=== PATIENT | male | born 1985 | race Caucasian/White ===

== ENCOUNTER 2019-12-31 08:08 | Emergency (ER) | payer MEDICAID, SELFPAY ==
--- NOTE | 2019-12-31 | XR_ITS ---
EXAMINATION: XR TIBIA AND FIBULA, LEFT CLINICAL INFORMATION: Pain and swelling. COMPARISON: None TECHNIQUE: AP and lateral views of the left tibia and fibula were obtained. FINDINGS: Bony alignment and mineralization are normal. No fracture or dislocation is seen. There is no abnormal periosteal thickening. The lateral and medial joint space compartments of the knee are well-maintained, and the ankle mortise is intact. There is mild soft tissue swelling adjacent to the lateral malleolus. IMPRESSION: 1. There is mild soft tissue swelling adjacent to the lateral malleolus. 2. The examination is otherwise unremarkable.
--- NOTE | 2019-12-31 | US_ITS ---
EXAMINATION: US VENOUS ULTRASOUND WITH DOPPLER LOWER EXTREMITY, LEFT CLINICAL INFORMATION: Pain left lower extremity. Assess for occult DVT COMPARISON: None TECHNIQUE: Ultrasound of the deep veins is performed from the hip to the calf with compression sonography and color and pulse Doppler assessment. Spectral analysis with color-flow imaging is performed. FINDINGS: There is normal venous compression and respiratory variation and augmented flow. The visualized common femoral vein, superficial femoral vein, profunda femoral vein, popliteal vein, and the trifurcation region shows no evidence of deep venous thrombosis. No popliteal fossa cyst demonstrated. IMPRESSION: No DVT demonstrated in the left lower extremity.
[2019-12-31 08:16] VITALS: PULSE 97; RESP 16; TEMP 36.7; O2SAT 100; BMI 24.5
--- NOTE | 2019-12-31 08:24 | ED_ITS ---
HPI - Extremity Problem General Chief complaint: Extremity Problem <Víctor Ramon NP - Last Filed: 12/31/19 16:44> Stated complaint: l leg pain <Víctor Ramon NP - Last Filed: 12/31/19 16:44> Time Seen by Provider: 12/31/19 08:20 <Víctor Ramon NP - Last Filed: 12/31/19 16:44> Source: patient <Víctor Ramon NP - Last Filed: 12/31/19 16:44> Mode of arrival: other ( Using crutches) <Víctor Ramon NP - Last Filed: 12/31/19 16:44> History of Present Illness HPI Narrative: states left lower leg swelling /pain for the past 1 week. States has had similar episode a year ago for which he came to the emergency room and got antibiotics got better. 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 Denies any fever or chills. Does have slight redness to the area with ecchymosis. <Víctor Ramon NP - Last Filed: 12/31/19 16:44> MD Complaint: extremity pain and extremity swelling <MICHAEL Hayden Last Filed: 12/31/19 16:44> Radiation: none <MICHAEL Hayden Last Filed: 12/31/19 16:44> Relieving factors: cold therapy, immobilization and elevation <MICHAEL Hayden Last Filed: 12/31/19 16:44> Exacerbating factors: weight bearing and walking <MICHAEL Hayden Last Filed: 12/31/19 16:44> Related Data Home medications: Previous Rx's Medication Instructions Recorded doxycycline monohydrate 100 mg PO BID 10 Days #20 cap 12/31/19 doxycycline monohydrate 100 mg PO BID 10 Days #20 cap 12/31/19 <MICHAEL Hayden Last Filed: 12/31/19 16:44> Allergies/Adverse reactions: Allergies Allergy/AdvReac Type Severity Reaction Status Date / Time Penicillins Allergy Intermediate RASH Unverified 12/16/19 15:48 penicillin V Allergy Unknown rash Verified 04/08/14 00:00 <Víctor Ramon NP - Last Filed: 12/31/19 16:44> Review of Systems Review of Systems: Constitutional: No Weight loss, No Fever, No Chills, No Night Sweats, No Fatigue, No Malaise ENT/Mouth: No Hearing loss, No Ear Pain, No Nasal Congestion, No Sinus Pain, No Hoarseness, No sore throat, No Rhinorrhea, No Swallowing Difficulty Eyes: No Eye Pain, No Swelling, No Redness, No Foreign Body, No Discharge, No Vision Changes Cardiovascular: No Chest Pain, No SOB, No Dyspnea on Exertion, No Orthopnea, No Edema, No Palpitations Respiratory: No Cough, No Sputum, No Wheezing, No Smoke Exposure, No Dyspnea Gastrointestinal: No Nausea, No Vomiting, No Diarrhea, No Constipation, No abdominal Pain, No Hematochezia, No Melena Genitourinary: no irregular bleeding, No Dysuria, No Urinary Frequency, No Hematuria, No Urinary Incontinence, No Urgency, No Flank Pain, No Urinary Flow Changes, No Hesitancy Musculoskeletal: No joint pain, No Myalgias, No Joint Swelling Skin: No Skin Lesions, No rash Neuro: No Weakness, No Numbness, No Paresthesias, No Loss of Consciousness, No Dizziness, No Headache Psych: No Anxiety/Panic, No Depression, No SI/HI/AH/VH, No Social Issues, Heme/Lymph: No Bruising, No Bleeding,No Lymphadenopathy Endocrine: No Polyuria, No Polydipsia, No Temperature Intolerance <Víctor Ramon NP - Last Filed: 12/31/19 16:44> [facility] Past Medical History Medical History: Medical History (Updated 12/31/19 @ 12:18 by Víctor Ramon NP) Anxiety Depression Hernia Migraine Opiate addiction <Víctor Ramon NP - Last Filed: 12/31/19 16:44> Social History Social History: Social History Smoking Status: Never smoker Smoked in Last 30 Days: No Substance Use Type: Marijuana Substance Use Type Other:: past opiate abuse Substance Use Frequency: Daily Advance Directives: No Advance Directives Information Provided: Yes <Víctor Ramon NP - Last Filed: 12/31/19 16:44> Physical Exam Vital Signs and I&O and Narrative: Vital Signs and I&O: Vital Signs Temp 97.6 F 12/31/19 11:47 Pulse 72 12/31/19 11:47 Resp 16 12/31/19 11:47 BP 121/77 10/02/20 11:47 Pulse Ox 99 12/31/19 11:47 Intake & Output 12/30/19 12/31/19 12/31/19 18:59 06:59 18:59 Weight 75.189 kg Body Mass Index 24.5 <Víctorshukri Ramon NP - Last Filed: 12/31/19 16:44> Vital Signs and I&O: Vital Signs Temp 97.6 F 12/31/19 11:47 Pulse 72 12/31/19 11:47 Resp 16 12/31/19 11:47 BP 121/77 12/31/19 11:47 Pulse Ox 99 12/31/19 11:47 Intake & Output 12/30/19 12/31/19 12/31/19 18:59 06:59 18:59 Weight 75.189 kg Body Mass Index 24.5 <Robert oCrmier DO - Last Filed: 12/31/19 17:38> Const: General: cooperative and healthy appearing; No acute distress or intoxicated appearing <Víctor Ramon NP - Last Filed: 12/31/19 16:44> Nutritional Appearance: average body habitus <Víctor Ramon NP - Last Filed: 12/31/19 16:44> Orientation/consciousness: patient oriented x3 <Víctor Ramon NP - Last Filed: 12/31/19 16:44> HENMT: Head: Yes normal to inspection <Víctorshukri Ramon NP - Last Filed: 12/31/19 16:44> Ears: hearing grossly normal bilaterally <Víctorshukri Ramon NP - Last Filed: 12/31/19 16:44> Neck: Neck: Yes normal visual inspection, No positive Brudzinski's sign, No positive Kernig's sign and No tender <Víctorshukri Ramon NP - Last Filed: 12/31/19 16:44> Thyroid: Thyroid normal <Víctor MICHAEL Ramon - Last Filed: 12/31/19 16:44> Chest: Chest palpation & inspection: normal inspection of the chest <Víctor Ramon NP - Last Filed: 12/31/19 16:44> Resp: Effort & Inspection: normal respiratory effort <Víctor Ramon NP - Last Filed: 12/31/19 16:44> Cardio: Jugular venous distension: no JVD <Víctor RamonMICHAEL guerrero - Last Filed: 12/31/19 16:44> GI: Inspection: Yes normal to inspection <Víctorshukri Ramon NP - Last Filed: 12/31/19 16:44> Percussion: Yes normal to percussion <Víctor RamirezMICHAEL guerrero - Last Filed: 12/31/19 16:44> Auscultation: normal bowel sounds <Víctorshukri Ramon NP - Last Filed: 12/31/19 16:44> : General: Yes no CVA tenderness <Víctor MICHAEL Ramon - Last Filed: 12/31/19 16:44> Back/Spine/Pelvis: Back: no CVA tenderness <Víctor MICHAEL Ramon - Last Filed: 12/31/19 16:44> Skin: General skin exam: no rashes or lesions noted <Víctorshukri Ramon NP - Last Filed: 12/31/19 16:44> Neuro: General: patient oriented x3 <Víctor Ramon NP - Last Filed: 12/31/19 16:44> Extrem: General: Yes normal to inspection <Víctor RamonMICHAEL guerrero - Last Filed: 12/31/19 16:44> Course Course Hospital Course: x-ray no acute bony abnormality. Ultrasound negative for lower extremity DVT. No signs symptoms/ risk factors for DVT / pulmonary embolism. Exam consistent with new of leg swelling with ecchymosis and slight erythema consistent with early cellulitis. Will start on oral antibiotics yearly has crutches has this happen to him once before will follow up with his GP and referral to vascular. Agreeable plan. Stable for discharge. <Víctor Ramon NP - Last Filed: 12/31/19 16:44> MDM - Extremity (Nontraumatic) MDM Narrative Medical decision making narrative: Strain/strain/contusion / fracture/cellulitis / DVT. <Víctor Ramon NP - Last Filed: 12/31/19 16:44> Lab Data Result diagrams: : 12/31/19 08:48 12/31/19 08:48 <Víctor Ramon NP - Last Filed: 12/31/19 16:44> Labs: Lab Results 12/31/19 12/31/19 Range/Units 08:48 08:48 WBC 5.6 (4.8-10.8) X10*3/uL RBC 4.09 L (4.60-5.80) X10*6/uL Hgb 12.0 L (14.0-18.0) g/dl Hct 36.5 L (42-52) % MCV 89.2 (80-98) fL MCH 29.3 (27.0-33.0) pg MCHC 32.9 (31.0-36.0) g/dl RDW 12.0 (11.0-16.0) % Plt Count 254 (160-400) X10*3/uL MPV 9.4 (9.4-12.4) fL Immature Gran % (Auto) 0.4 (0.0-0.4) % Neut % (Auto) 69.3 (45-73) % Lymph % (Auto) 20.6 (20-40) % [place] % (Auto) 8.4 (2-11) % Eos % (Auto) 0.9 (0-4) % Baso % (Auto) 0.4 (0-2) % Neut # (Auto) 3.9 (2.0-8.3) X10*3/uL Lymph # (Auto) 1.2 (1.2-4.9) X10*3/uL [place] # (Auto) 0.5 (0.1-1.2) X10*3/uL Eos # (Auto) 0.1 (0.0-0.4) X10*3/uL Baso # (Auto) 0.0 (0.0-0.2) X10*3/uL Abs Immat Gran (auto) 0.02 (0.00-0.03) X10*3/uL Absolute Nucleated RBC 0.000 (0.0-0.012) X10*3/uL Nucleated RBC % (auto) 0.0 (0.0-0.2) /100WBC Sodium 139 (135-145) mmol/L Potassium 3.9 (3.3-5.1) mmol/l Chloride 103 (96-108) mmol/L Carbon Dioxide 30 H (22-29) mmol/L Anion Gap 10 L (12-20) BUN 17 H (9-16) mg/dL Creatinine 0.76 (0.5-1.4) mg/dL Estim Creat Clear Calc 139.5 Estimated GFR > 60 Random Glucose 83 (60-115) mg/dL Calcium 9.1 (8.4-10.2) mg/dL Total Bilirubin 0.5 (0.0-1.0) mg/dL Direct Bilirubin 0.2 (0.0-0.5) mg/dL AST 31 (5-37) U/L ALT 46 H (0-40) U/L Alkaline Phosphatase 96 (39-117) U/L Total Protein 7.0 (6.5-8.0) g/dL Albumin 4.6 (3.5-5.0) g/dL <Víctor Ramon NP - Last Filed: 12/31/19 16:44> Lab Results 12/31/19 12/31/19 Range/Units 08:48 08:48 WBC 5.6 (4.8-10.8) X10*3/uL RBC 4.09 L (4.60-5.80) X10*6/uL Hgb 12.0 L (14.0-18.0) g/dl Hct 36.5 L (42-52) % MCV 89.2 (80-98) fL MCH 29.3 (27.0-33.0) pg MCHC 32.9 (31.0-36.0) g/dl RDW 12.0 (11.0-16.0) % Plt Count 254 (160-400) X10*3/uL MPV 9.4 (9.4-12.4) fL Immature Gran % (Auto) 0.4 (0.0-0.4) % Neut % (Auto) 69.3 (45-73) % Lymph % (Auto) 20.6 (20-40) % [place] % (Auto) 8.4 (2-11) % Eos % (Auto) 0.9 (0-4) % Baso % (Auto) 0.4 (0-2) % Neut # (Auto) 3.9 (2.0-8.3) X10*3/uL Lymph # (Auto) 1.2 (1.2-4.9) X10*3/uL [place] # (Auto) 0.5 (0.1-1.2) X10*3/uL Eos # (Auto) 0.1 (0.0-0.4) X10*3/uL Baso # (Auto) 0.0 (0.0-0.2) X10*3/uL Abs Immat Gran (auto) 0.02 (0.00-0.03) X10*3/uL Absolute Nucleated RBC 0.000 (0.0-0.012) X10*3/uL Nucleated RBC % (auto) 0.0 (0.0-0.2) /100WBC Sodium 139 (135-145) mmol/L Potassium 3.9 (3.3-5.1) mmol/l Chloride 103 (96-108) mmol/L Carbon Dioxide 30 H (22-29) mmol/L Anion Gap 10 L (12-20) BUN 17 H (9-16) mg/dL Creatinine 0.76 (0.5-1.4) mg/dL Estim Creat Clear Calc 139.5 Estimated GFR > 60 Random Glucose 83 (60-115) mg/dL Calcium 9.1 (8.4-10.2) mg/dL Total Bilirubin 0.5 (0.0-1.0) mg/dL Direct Bilirubin 0.2 (0.0-0.5) mg/dL AST 31 (5-37) U/L ALT 46 H (0-40) U/L Alkaline Phosphatase 96 (39-117) U/L Total Protein 7.0 (6.5-8.0) g/dL Albumin 4.6 (3.5-5.0) g/dL <Robert Cormier DO - Last Filed: 12/31/19 17:38> Imaging Data Venous US: Radiologist's impression: [address] [address] Ultrasound Report Signed Patient: Juan Manuel Knight#: [id number] : 1985Acct:[id number] Age/Sex: 34 / MADM Date: 12/31/19 Loc: HO.ED Attending Dr: Ordering Physician: Víctor Ramon NP Date of Service: 12/31/19 Procedure(s): US venous duplex LE Accession Number(s): [id number] cc: ~ EXAMINATION: US VENOUS ULTRASOUND WITH DOPPLER LOWER EXTREMITY, LEFT CLINICAL INFORMATION: Pain left lower extremity. Assess for occult DVT COMPARISON: None TECHNIQUE: Ultrasound of the deep veins is performed from the hip to the calf with compression sonography and color and pulse Doppler assessment. Spectral analysis with color-flow imaging is performed. FINDINGS: There is normal venous compression and respiratory variation and augmented flow. The visualized common femoral vein, superficial femoral vein, profunda femoral vein, popliteal vein, and the trifurcation region shows no evidence of deep venous thrombosis. No popliteal fossa cyst demonstrated. IMPRESSION: No DVT demonstrated in the left lower extremity. Dictated By:ASUNCION DURAN MD Signed By:<Electronically signed by ASUNCION DURAN MD in OV>12/31/19941 DD/ 1 TD/TT: Mortgage Loan Assistant: DARIUS <íVctor Ramon NP - Last Filed: 12/31/19 16:44> Discharge Plan Discharge Clinical Impression: Lower extremity edema Cellulitis Qualifiers: Site of cellulitis: extremity Site of cellulitis of extremity: lower extremity Laterality: left Qualified Code(s): L03.116 - Cellulitis of left lower limb <Víctor Ramon NP - Last Filed: 12/31/19 16:44> Patient Disposition: Home, Self-Care <MICHAEL Hayden Last Filed: 12/31/19 16:44> Instructions: Cellulitis (ED) <Víctor Ramon NP - Last Filed: 12/31/19 16:44> Additional Instructions: rest Elevate Compresses Use her crutches as discussed Your x-ray does not show any evidence of bone fracture The ultrasound of your left lower extremity does not show any evidence of blood clot You have slight swelling around the lower calf area this can be as result of injury that is causing the bruising There is some redness concerning for infection for this reason you be started on antibiotics I will give her work note for next 3 days Have a recheck with her primary care doctor either Friday or Friday Return if any concerns or worsening symptoms Thank you <Víctor Ramon NP - Last Filed: 12/31/19 16:44> Prescriptions: New doxycycline monohydrate 100 mg capsule 100 mg PO BID 10 Days Qty: 20 RF: 0 doxycycline monohydrate 100 mg capsule 100 mg PO BID 10 Days Qty: 20 RF: 0 <Víctor Ramon NP - Last Filed: 12/31/19 16:44> Interventions: ED Discharge Assessment Last Done: 12/31/19 13:10 <Víctor Ramon NP - Last Filed: 12/31/19 16:44> Discharge Date/Time: 12/31/19 12:50 <Víctor Ramon NP - Last Filed: 12/31/19 16:44>
[2019-12-31 08:52] LABS: Basophils Percent Auto 0.4 % (0-2); Eosinophils Absolute Auto 0.1 X10*3/uL (0.0-0.4); Eosinophils Percent Auto 0.9 % (0-4); Hematocrit 36.5 % (42-52); Imm Gran Abs Auto 0.02 X10*3/uL (0.00-0.03); Imm Gran Pct Auto 0.4 % (0.0-0.4); Lymphocytes Absolute Auto 1.2 X10*3/uL (1.2-4.9); Lymphocytes Percent Auto 20.6 % (20-40); MANUAL DIFF FLAG NO; Mean Corpuscular HGB Conc 32.9 g/dl (31.0-36.0); Mean Corpuscular Hemoglobin 29.3 pg (27.0-33.0); Mean Corpuscular Volume 89.2 fL (80-98); Mean Platelet Volume 9.4 fL (9.4-12.4); Monocytes Absolute Auto 0.5 X10*3/uL (0.1-1.2); Monocytes Percent Auto 8.4 % (2-11); Neutrophils Absolute Auto 3.9 X10*3/uL (2.0-8.3); Neutrophils Percent Auto 69.3 % (45-73); Platelet Count 254 X10*3/uL (160-400); Red Blood Count 4.09 X10*6/uL (4.60-5.80); White Blood Count 5.6 X10*3/uL (4.8-10.8)
--- NOTE | 2019-12-31 09:13 | PC.NURSE ---
PT ALERT AND VERBAL. SKIN WPD. RESPIRATIONS EVEN AND NON LABORED. MODERATE SWELLING, REDNESS TO LEFT ANKLE AND LOWER SIDE OF LEG. AREA HOT AND TENDER TO TOUCH. STATES PAIN INCREASES WITH AMBULATION, DECREASES WITH REST AND WHEN RAISED. AWAITING RESULTS OF US, CT, BLOOD WORK.
[2019-12-31 09:19] LABS: Alanine Aminotransferase 46 U/L (0-40); Albumin Level 4.6 g/dL (3.5-5.0); Alkaline Phosphatase 96 U/L (39-117); Anion Gap 10 (12-20); Aspartate Amino Transferase 31 U/L (5-37); Bilirubin Direct 0.2 mg/dL (0.0-0.5); Bilirubin Total 0.5 mg/dL (0.0-1.0); Blood Urea Nitrogen 17 mg/dL (9-16); Calcium 9.1 mg/dL (8.4-10.2); Carbon Dioxide 30 mmol/L (22-29); Chloride 103 mmol/L (96-108); Creatinine Clr Calc Pharmacy 139.5; Estimated Glomerular Filt Rate > 60; Glucose Random 83 mg/dL (60-115); Potassium 3.9 mmol/l (3.3-5.1); Sodium 139 mmol/L (135-145)
[2019-12-31 11:47] VITALS: BP 121/77; PULSE 72; RESP 16; TEMP 36.4; O2SAT 99
== END 2019-12-31 12:50 | disposition home or self-care (01) ==
PROVIDERS: Nurse Practitioner Primary Care; Emergency Provider Emergency Medicine; PCP Internal Medicine
DX: L03.116 Cellulitis of left lower limb (principal); M79.662 Pain in left lower leg; F11.20 Opioid dependence, uncomplicated
CPT/HCPCS: 36415; 73590; 80048; 80076; 85025; 93971; 99284

== ENCOUNTER 2020-09-30 23:26 | Emergency (ER) | payer MEDICAID, SELFPAY ==
[2020-10-01] VITALS: BP 126/74; PULSE 77; RESP 18; O2SAT 97; BMI 25.1
--- NOTE | 2020-10-01 00:35 | ED.DENTAL ---
HPI - Dental/Oral General Chief complaint: Ear Problems Stated complaint: toothache Source: patient Mode of arrival: ambulatory Limitations: no limitations History of Present Illness HPI Narrative: 35-year-old male presents with several weeks of right lower dental pain which has now progressed to right-sided ear pain. Patient has not seen a dentist and has known dental caries. He did not report fevers, chills, difficulty opening his jaw or swallowing, neck pain, chest pain or pressure, palpitations, shortness of breath, abdominal pain, abdominal distention, nausea, vomiting, diarrhea, constipation, dysuria, hematuria, or any other concerning symptoms. MD Complaint: tooth pain Teeth map: 1. Onset (ago): week(s) Duration: constant Severity: moderate Severity scale (1-10): 7 Relieving factors: nothing Exacerbating factors: chewing, cold, heat and drinking fluids Context: history of dental caries and poor dental care Associated symptoms: ear pain Treatment prior to arrival: oral analgesic Related Data Previous Rx's Medication Instructions Recorded doxycycline monohydrate 100 mg PO BID 10 Days #20 cap 12/31/19 doxycycline monohydrate 100 mg PO BID 10 Days #20 cap 12/31/19 clindamycin HCl 150 mg PO TID 7 Days #21 cap 10/01/20 clindamycin HCl 300 mg PO Q8H 7 Days #21 cap 10/01/20 ketorolac 10 mg PO Q6H PRN 5 Days #15 tab 10/01/20 Allergies Allergy/AdvReac Type Severity Reaction Status Date / Time Penicillins Allergy Intermediate RASH Verified 09/30/20 23:59 penicillin V Allergy Unknown rash Verified 09/30/20 23:59 Review of Systems Review of Systems: Constitutional: No Fever, No Chills ENT/Mouth: No swallowing difficulty, no change in voice, positive dental pain, positive jaw pain, No facial swelling Eyes: No Eye Pain, No Swelling Cardiovascular: No Chest Pain, No SOB Respiratory: No Cough, No Sputum, No Wheezing, No Smoke Exposure, No Dyspnea Gastrointestinal: No Nausea, No Vomiting, No Diarrhea Genitourinary: No Dysuria Musculoskeletal: No Myalgias Skin: No rash Neuro: No Weakness, No Numbness, No Headache Yes all other systems are reviewed and are negative PMFSH Past Medical History Attestation statement: The following information was validated with the patient. Source: old records reviewed Medical History Anxiety Depression Hernia Migraine Opiate addiction Social History Social History Substance Use Type: Marijuana Advance Directives: No Advance Directives Information Provided: No Physical Exam Vital Signs: Vital Signs: Last Vital Signs Pulse 77 10/01/20 00:00 Resp 18 10/01/20 00:00 BP 126/74 10/01/20 00:00 Pulse Ox 97 10/01/20 00:00 Body Mass Index 25.1 Appearance: Alert. Oriented X3. No acute distress. Eyes: Pupils equal, round and reactive to light. ENT: Pharynx normal. right tympanic membrane erythematous and bulging with effusion, no perforation. Left tympanic membrane normal. No mastoid tenderness noted. Visible dental caries to tooth 29 Neck: Normal inspection. Neck supple. no cervical lymphadenopathy, no tracheal stridor no trismus CVS: Normal heart rate and rhythm. Pulses normal. Respiratory: No respiratory distress. Breath sounds normal. Abdomen: Soft and nontender. Skin: Skin warm and dry. Normal skin color. Normal skin turgor. Extremities: No lower extremity edema. gait well balanced well coordinated, moves all extremities spontaneously Neuro: No motor deficit. No sensory deficit. Course Course Course Narrative: 35-year-old male presents with dental caries, tooth ache and right ear pain. He has had this ongoing for several weeks and has not seen a dentist. Will treat with clindamycin as patient is anaphylactic allergic to penicillin. Patient given dental sheet, dose of Toradol for pain management and will be given a script for Toradol. Patient verbalized understanding of and agrees to plan of care discharge home. MDM - Dental/Oral MDM Narrative Medical decision making narrative: Otitis media, mastoiditis Differential Diagnosis Differential diagnosis: Likely gingival abscess, dental caries, toothache, dental abscess and fracture of tooth Medical Records Attestation: I reviewed the patient's medical records. Discharge Plan Discharge Clinical Impression: Dental abscess Otitis media Qualifiers: Otitis media type: suppurative Chronicity: acute Laterality: right Recurrence: non-recurrent Spontaneous tympanic membrane rupture: without spontaneous rupture Qualified Code(s): H66.001 - Acute suppurative otitis media without spontaneous rupture of ear drum, right ear Patient Disposition: Home, Self-Care Instructions: Dental Abscess (ED), Ear Infection (ED), Toothache (ED) Additional Instructions: you were evaluated for dental and ear pain. Please take clindamycin 450 mg 3 times a day for the next 10 days. You must follow-up with a dentist. Please use Toradol as needed for pain management. Your 1st dose was given to you IM in the emergency department. Thank you for choosing this emergency department for evaluation. Please follow-up with primary care physician as needed. Return to the emergency department for any new, concerning, or worsening symptoms. Prescriptions: New clindamycin HCl 300 mg capsule 300 mg PO Q8H 7 Days Qty: 21 RF: 0 clindamycin HCl 150 mg capsule 150 mg PO TID 7 Days Qty: 21 RF: 0 ketorolac 10 mg tablet 10 mg PO Q6H PRN (Reason: pain) 5 Days Qty: 15 RF: 0 No Action doxycycline monohydrate 100 mg capsule 100 mg PO BID 10 Days Qty: 20 RF: 0 doxycycline monohydrate 100 mg capsule 100 mg PO BID 10 Days Qty: 20 RF: 0
[2020-10-01] MEDS: Ketorolac Tromethamine 60 MG/2 ML VIAL IM (00:54)
--- NOTE | 2020-10-01 00:57 | PC.NURSE ---
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
[2020-10-01] MEDS: Clindamycin HCL 150 MG CAPSULE 450 MG PO (01:17)
== END 2020-10-01 01:53 | disposition home or self-care (01) ==
PROVIDERS: Emergency Provider Internal Medicine; PCP Internal Medicine
DX: K04.7 Periapical abscess without sinus (principal); H66.001 Acute suppurative otitis media without spontaneous rupture of ear drum, right ear; Z88.0 Allergy status to penicillin
CPT/HCPCS: 96372; 99284; J1885

== ENCOUNTER 2021-07-04 23:14 | Emergency (ER) | payer MEDICAID, SELFPAY ==
[2021-07-04 23:20] VITALS: BP 128/82; PULSE 84; RESP 16; TEMP 36.9; O2SAT 98; BMI 25.1
--- NOTE | 2021-07-05 00:31 | ED_ITS ---
HPI - General Adult General Chief complaint: Dental/Oral Stated complaint: tooth infection & swollen R eye Time Seen by Provider: 07/05/21 00:24 Source: patient Mode of arrival: ambulatory Limitations: no limitations History of Present Illness HPI narrative: 36-year-old male presents to ED right eye redness, green discharge, and slight upper eyelid swelling. Patient denies any recent trauma to the eye or sleeping or using contacts. Patient's secondary complaint is right lower molar pain also. Patient states no facial swelling, neck swelling, drooling, or shortness of breath Related Data Previous Rx's Medication Instructions Recorded doxycycline monohydrate 100 mg 100 mg PO BID 10 Days #20 cap 12/31/19 capsule doxycycline monohydrate 100 mg 100 mg PO BID 10 Days #20 cap 12/31/19 capsule clindamycin HCl 150 mg capsule 150 mg PO TID 7 Days #21 cap 10/01/20 clindamycin HCl 300 mg capsule 300 mg PO Q8H 7 Days #21 cap 10/01/20 ketorolac 10 mg tablet 10 mg PO Q6H PRN 5 Days #15 tab 10/01/20 clindamycin HCl 300 mg capsule 300 mg PO QID 10 Days #40 cap 07/05/21 erythromycin 5 mg/gram (0.5 %) eye 0.5 inch OPHTHALMIC (EYE) QID 7 07/05/21 ointment Days #3.5 g naproxen 500 mg tablet 500 mg PO BID PRN 10 Days #20 tab 07/05/21 Allergies Allergy/AdvReac Type Severity Reaction Status Date / Time Penicillins Allergy Intermediate RASH Verified 09/30/20 23:59 penicillin V Allergy Unknown rash Verified 09/30/20 23:59 Review of Systems Review of Systems: Dental pain and right eye doing discharge and redness. Yes all other systems are reviewed and are negative PMFSH Past Medical History Medical History Anxiety Depression Hernia Migraine Opiate addiction Social History Social History Substance Use Type: Marijuana Advance Directives: No Advance Directives Information Provided: No Physical Exam ED Vital Signs: Vital Signs - 24 hr 07/04/21 23:20 Temperature 98.5 F Pulse Rate 84 Respiratory Rate 16 Blood Pressure 128/82 Pulse Oximetry 98 BMI result Body Mass Index 25.1 Const General: cooperative, healthy appearing, comfortable, no acute distress, well developed and alert Orientation/consciousness: oriented to time and patient oriented x3 HENMT Other: Negative for facial swelling or neck swelling Head: Yes normal to inspection, Yes No palpable skull fracture present, Yes normocephalic and Yes atraumatic Teeth image: 1. Cracked and decay. Negative for pus discharge or drooling. Negative for trismus. Eyes Other: Right eye positive conjunctival erythema and green discharge. Slight swelling of right upper eyelid and erythema. Negative for any stye or chalazoin. Visual acuity 20/20. Left eye normal. Visual acuity 20/20 Neck Neck: Yes normal visual inspection, Yes full ROM, Yes no lymphadenopathy, Yes no meningeal signs, Yes trachea midline, Yes supple, No anterior neck swelling and No tender Chest Chest palpation & inspection: normal inspection of the chest and normal palpation of entire chest wall Resp Effort & Inspection: normal respiratory effort and able to speak in complete sentences Auscultation: clear to auscultation bilaterally Cardio Jugular venous distension: no JVD Heart sounds: S1 normal heart sound present and S2 normal heart sound present GI Inspection: Yes normal to inspection and No abdominal wall ecchymosis Palpation (GI): Soft to palpation, not firm, nontender, no guarding and not rigid General: No CVA tenderness and Yes no CVA tenderness Back/Spine/Pelvis Back: no CVA tenderness, No CVA tenderness and No back tenderness Skin General skin exam: no rashes or lesions noted and elasticity normal Neuro General: oriented to time, patient oriented x3, gait normal and no meningeal signs Cranial nerves: Yes CN's II-XII intact bilaterally Extrem General: Yes normal to inspection and Yes full ROM Psych Appearance: grossly normal, well kempt and not disheveled Course Course Course Narrative: Eye evaluation Reevaluation(s) Reevaluation #1: History physical exam indicate conjunctivitis. Patient given oral antibiotics and pain med for right molar pain. Time: 01:03 Medical Decision Making [facility] Narrative Medical decision making narrative: Conjunctivitis. Toothache Discharge Plan Discharge Clinical Impression: Toothache, Acute bacterial conjunctivitis Patient Disposition: Home, Self-Care Instructions: Toothache (ED), Conjunctivitis (ED) Additional Instructions: Will be discharged with eye ointment and oral antibiotic. Will need to follow- up with dentist and primary care provider. Return to ED for worsening eye pain, eye swelling, redness, worsening eye discharge, facial swelling, neck swelling, worsening tooth pain, drooling, or any other concerning symptoms. Prescriptions: New clindamycin HCl 300 mg capsule 300 mg PO QID 10 Days Qty: 40 0RF erythromycin 5 mg/gram (0.5 %) ointment 0.5 inch ophthalmic (eye) QID 7 Days Qty: 3.5 0RF naproxen 500 mg tablet 500 mg PO BID PRN (Reason: pain) 10 Days Qty: 20 0RF No Action doxycycline monohydrate 100 mg capsule 100 mg PO BID 10 Days Qty: 20 0RF doxycycline monohydrate 100 mg capsule 100 mg PO BID 10 Days Qty: 20 0RF clindamycin HCl 300 mg capsule 300 mg PO Q8H 7 Days Qty: 21 0RF Rx Instructions: take 450 mg 3 times a day for 7 days clindamycin HCl 150 mg capsule 150 mg PO TID 7 Days Qty: 21 0RF Rx Instructions: take 450 mg every 8 hours for 7 days ketorolac 10 mg tablet 10 mg PO Q6H PRN (Reason: pain) 5 Days Qty: 15 0RF Rx Instructions: 60 mg IM dose given in the emergency department on 10/01/2020 at 12:39 a.m. Referrals: Alvaro Corley [Physician] - (Right eye conjunctivitis) Stand Alone Forms: Work/School Release Print Language: Nepali
[2021-07-05] MEDS: Erythromycin Base 0.5% Oph Oin 1 GM TUBE 1 CM EYE-RIGHT (01:07)
== END 2021-07-05 00:58 | disposition home or self-care (01) ==
PROVIDERS: Emergency Provider Internal Medicine; PCP Internal Medicine
DX: K08.89 Other specified disorders of teeth and supporting structures (principal); H10.31 Unspecified acute conjunctivitis, right eye
CPT/HCPCS: 99283

== ENCOUNTER 2022-02-05 00:50 | Emergency (ER) | payer MEDICAID, SELFPAY ==
[2022-02-05 01:32] VITALS: BP 124/79; PULSE 74; RESP 16; TEMP 37; O2SAT 96; BMI 28.2
[2022-02-05 01:57] LABS: Strep A Nucleic Acid Negative (Negative)
[2022-02-05 02:26] LABS: Influenza A PCR NEGATIVE (Negative); Influenza B PCR NEGATIVE (Negative); Resp Syncy Virus RNA Qual PCR NEGATIVE (Negative); SARS COV2 PCR INHOUSE NEGATIVE (Negative)
--- NOTE | 2022-02-05 02:33 | ED.DENTAL ---
HPI - Dental/Oral General Chief complaint: Dental/Oral Stated complaint: infected tooth/jaw pain Time Seen by Provider: 02/05/22 02:32 Source: patient Mode of arrival: ambulatory Limitations: no limitations History of Present Illness HPI Narrative: Patient with chronic dental problems been here multiple times has not seen a dentist comes of a few days of pain in left lower premolar no fever no chills sensitive to cold water Related Data Previous Rx's Medication Instructions Recorded doxycycline monohydrate 100 mg 100 mg PO BID 10 days #20 caps 12/31/19 capsule doxycycline monohydrate 100 mg 100 mg PO BID leg cellulitis 10 12/31/19 capsule days #20 caps clindamycin HCl 150 mg capsule 150 mg PO TID 7 days #21 caps 10/01/20 clindamycin HCl 300 mg capsule 300 mg PO Q8H 7 days #21 caps 10/01/20 ketorolac 10 mg tablet 10 mg PO Q6H PRN pain 5 days #15 10/01/20 tabs clindamycin HCl 300 mg capsule 300 mg PO QID 10 days #40 caps 07/05/21 erythromycin 5 mg/gram (0.5 %) eye 0.5 inch ophthalmic (eye) QID 7 07/05/21 ointment days #3.5 grams naproxen 500 mg tablet 500 mg PO BID PRN pain 10 days #20 07/05/21 tabs clindamycin HCl 300 mg capsule 300 mg PO Q8H #30 caps 02/05/22 tramadol 50 mg tablet 50 mg PO Q6H PRN pain #20 tabs 02/05/22 Allergies Allergy/AdvReac Type Severity Reaction Status Date / Time Penicillins Allergy Intermediate RASH Verified 09/30/20 23:59 penicillin V Allergy Unknown rash Verified 09/30/20 23:59 Review of Systems Review of Systems: Yes all other systems are reviewed and are negative PMFSH Past Medical History Medical History Anxiety Depression Hernia Migraine Opiate addiction Social History Social History Substance Use Type: Marijuana Advance Directives: No Physical Exam Vital Signs: Vital Signs: Last Vital Signs Temp 98.6 F 02/05/22 01:32 Pulse 74 02/05/22 01:32 Resp 16 02/05/22 01:32 BP 124/79 02/05/22 01:32 Pulse Ox 96 02/05/22 01:32 O2 Del Method 02/05/22 01:32 BMI result Body Mass Index 28.2 Const: General: healthy appearing, comfortable and no acute distress HEENT: Teeth image: 1. Diffuse tenderness in the gum area and the left lower premolar no abscess palpable MDM - Dental/Oral Lab Data Labs: Lab Results 02/05/22 02/05/22 Range/Units 01:40 01:40 Influenza Type A (PCR) NEGATIVE (Negative) Influenza Type B (PCR) NEGATIVE (Negative) RSV RNA Qual (PCR) NEGATIVE (Negative) SARS-CoV-2 RNA (RT-PCR) NEGATIVE (Negative) S. pyogenes GrpA HAYLEE Negative (Negative) Discharge Plan Discharge Clinical Impression: Dental caries Patient Disposition: Home, Self-Care Instructions: Toothache (ED) Additional Instructions: Take antibiotics as advised Follow with dentist Prescriptions: New clindamycin HCl 300 mg capsule 300 mg PO Q8H Qty: 30 0RF tramadol 50 mg tablet 50 mg PO Q6H PRN (Reason: pain) Qty: 20 0RF No Action doxycycline monohydrate 100 mg capsule 100 mg PO BID 10 Days Qty: 20 0RF doxycycline monohydrate 100 mg capsule 100 mg PO BID 10 Days Qty: 20 0RF clindamycin HCl 300 mg capsule 300 mg PO Q8H 7 Days Qty: 21 0RF Rx Instructions: take 450 mg 3 times a day for 7 days clindamycin HCl 150 mg capsule 150 mg PO TID 7 Days Qty: 21 0RF Rx Instructions: take 450 mg every 8 hours for 7 days ketorolac 10 mg tablet 10 mg PO Q6H PRN (Reason: pain) 5 Days Qty: 15 0RF Rx Instructions: 60 mg IM dose given in the emergency department on 10/01/2020 at 12:39 a.m. clindamycin HCl 300 mg capsule 300 mg PO QID 10 Days Qty: 40 0RF erythromycin 5 mg/gram (0.5 %) ointment 0.5 inch ophthalmic (eye) QID 7 Days Qty: 3.5 0RF naproxen 500 mg tablet 500 mg PO BID PRN (Reason: pain) 10 Days Qty: 20 0RF
[2022-02-05] MEDS: Clindamycin HCL 300 MG CAPSULE PO (03:13)
[2022-02-05] MEDS: traMADoL HCL 50 MG TABLET PO (03:14)
== END 2022-02-05 03:17 | disposition home or self-care (01) ==
PROVIDERS: Emergency Provider Internal Medicine
DX: K02.9 Dental caries, unspecified (principal); K08.89 Other specified disorders of teeth and supporting structures; Z20.822 Contact with and (suspected) exposure to COVID-19; F12.90 Cannabis use, unspecified, uncomplicated; F11.20 Opioid dependence, uncomplicated
CPT/HCPCS: 0241U; 36415; 87651; 99283

== ENCOUNTER 2022-06-13 12:31 | Outpatient (REF) | payer MEDICAID, SELFPAY ==
[2022-06-13 14:03] LABS: MANUAL DIFF FLAG NO
[2022-06-13 14:34] LABS: Basophils Percent Auto 0.6 % (0-2); Eosinophils Absolute Auto 0.1 X10*3/uL (0.0-0.4); Eosinophils Percent Auto 2.6 % (0-4); Hematocrit 43.1 % (42.0-52.0); Imm Gran Abs Auto 0.02 X10*3/uL (0.00-0.03); Imm Gran Pct Auto 0.4 % (0.0-0.4); Lymphocytes Absolute Auto 1.3 X10*3/uL (1.2-4.9); Lymphocytes Percent Auto 25.6 % (20-40); Mean Corpuscular HGB Conc 32.5 g/dl (31.0-36.0); Mean Corpuscular Hemoglobin 28.2 pg (27.0-33.0); Mean Corpuscular Volume 86.9 fL (80.0-98.0); Monocytes Absolute Auto 0.3 X10*3/uL (0.1-1.2); Monocytes Percent Auto 6.1 % (2-11); Neutrophils Absolute Auto 3.2 x10*3/uL (2.0-8.3); Neutrophils Percent Auto 64.7 % (45-73); Platelet Count 306 X10*3/uL (160-400); Red Blood Count 4.96 X10*6/uL (4.60-5.80); Red Cell Distribution Width 11.5 % (11.0-16.0); White Blood Count 4.9 X10*3/uL (4.8-10.8)
[2022-06-13 14:58] LABS: Alanine Aminotransferase 78 U/L (0-40); Albumin Level 4.8 g/dL (3.5-5.0); Alkaline Phosphatase 74 U/L (39-117); Anion Gap 10 (12-20); Aspartate Amino Transferase 43 U/L (5-37); Bilirubin Total 0.4 mg/dL (0.0-1.0); Blood Urea Nitrogen 19 mg/dL (9-16); Carbon Dioxide 33 mmol/L (22-29); Chloride 101 mmol/L (96-108); Estimated Glomerular Filt Rate > 60; Glucose Random 90 mg/dL (60-115); Potassium 4.4 mmol/L (3.3-5.1); Sodium 140 mmol/L (135-145); Total Protein 7.4 g/dL (6.5-8.0)
[2022-06-13 15:15] LABS: Thyroid Stimulating Hormone 1.27 uIU/mL (0.32-4.0)
== END 2022-06-13 12:32 | disposition home or self-care (01) ==
LOC: HO.10HDL 12:31
PROVIDERS: Visit Provider Internal Medicine
DX: F12.288 Cannabis dependence with other cannabis-induced disorder (principal); F32.9 Major depressive disorder, single episode, unspecified; R45.4 Irritability and anger; R61 Generalized hyperhidrosis; R63.4 Abnormal weight loss
CPT/HCPCS: 36415; 80053; 84443; 85025

== ENCOUNTER 2023-01-09 10:40 | Outpatient (REF) | payer MEDICAID, SELFPAY ==
[2023-01-09 13:14] LABS: MANUAL DIFF FLAG NO
[2023-01-09 13:21] LABS: Basophils Percent Auto 0.5 % (0-2); Eosinophils Absolute Auto 0.2 X10*3/uL (0.0-0.4); Eosinophils Percent Auto 2.8 % (0-4); Hematocrit 42.6 % (42.0-52.0); Imm Gran Abs Auto 0.03 X10*3/uL (0.00-0.03); Imm Gran Pct Auto 0.5 % (0.0-0.4); Lymphocytes Absolute Auto 1.4 X10*3/uL (1.2-4.9); Mean Corpuscular HGB Conc 32.9 g/dl (31.0-36.0); Mean Corpuscular Hemoglobin 28.3 pg (27.0-33.0); Mean Corpuscular Volume 86.1 fL (80.0-98.0); Mean Platelet Volume 9.5 fL (9.4-12.4); Monocytes Absolute Auto 0.4 X10*3/uL (0.1-1.2); Monocytes Percent Auto 6.9 % (2-11); Neutrophils Absolute Auto 3.6 x10*3/uL (2.0-8.3); Neutrophils Percent Auto 64.3 % (45-73); Platelet Count 319 X10*3/uL (160-400); Red Blood Count 4.95 X10*6/uL (4.60-5.80); Red Cell Distribution Width 11.9 % (11.0-16.0); White Blood Count 5.6 X10*3/uL (4.8-10.8)
[2023-01-09 14:22] LABS: Creatinine Urine 211.06 mg/dL; Protein/Creatinine Ratio, Ur 0.05 (<0.2); Total Protein Urine Random 11 mg/dL (<12)
[2023-01-09 14:30] LABS: Alanine Aminotransferase 58 U/L (0-40); Albumin Level 4.6 g/dL (3.5-5.0); Alkaline Phosphatase 126 U/L (39-117); Anion Gap 14 (12-20); Aspartate Amino Transferase 41 U/L (5-37); Bilirubin Total 0.9 mg/dL (0.0-1.0); Blood Urea Nitrogen 15 mg/dL (9-16); Carbon Dioxide 27 mmol/L (22-29); Chloride 104 mmol/L (96-108); Cholesterol 242 mg/dL (<200); Estimated Glomerular Filt Rate > 60; Glucose Random 58 mg/dL (60-115); HDL Cholesterol 54 mg/dL (>40); LDL Cholesterol Calculated 164 mg/dL (<100); Potassium 3.7 mmol/L (3.3-5.1); Sodium 141 mmol/L (135-145); Total Protein 7.6 g/dL (6.5-8.0); Triglycerides 123 mg/dL (<150)
== END 2023-01-09 10:41 | disposition home or self-care (01) ==
LOC: HO.10HDL 10:40
PROVIDERS: Visit Provider Internal Medicine
DX: Z00.00 Encounter for general adult medical examination without abnormal findings (principal); G56.03 Carpal tunnel syndrome, bilateral upper limbs; I10 Essential (primary) hypertension
CPT/HCPCS: 36415; 80053; 80061; 82570; 84156; 84443; 85025

== ENCOUNTER 2024-08-11 22:21 | Emergency (ER) | payer MEDICAID, SELFPAY ==
[2024-08-11 22:25] VITALS: BP 128/89; PULSE 122; RESP 20; TEMP 36.8; O2SAT 97; BMI 32.5
[2024-08-11 22:46] LABS: Basophils Percent Auto 0.4 % (0-2); Eosinophils Absolute Auto 0.1 X10*3/uL (0.0-0.4); Eosinophils Percent Auto 0.6 % (0-4); Hematocrit 35.4 % (42.0-52.0); Hemoglobin 12.1 g/dl (14.0-18.0); Imm Gran Abs Auto 0.03 X10*3/uL (0.00-0.03); Imm Gran Pct Auto 0.4 % (0.0-0.4); Lymphocytes Absolute Auto 1.3 X10*3/uL (1.2-4.9); Lymphocytes Percent Auto 14.7 % (20-40); MANUAL DIFF FLAG NO; Mean Corpuscular HGB Conc 34.2 g/dl (31.0-36.0); Mean Corpuscular Hemoglobin 29.2 pg (27.0-33.0); Mean Corpuscular Volume 85.3 fL (80.0-98.0); Mean Platelet Volume 9.3 fL (9.4-12.4); Monocytes Absolute Auto 0.6 X10*3/uL (0.1-1.2); Monocytes Percent Auto 6.7 % (2-11); Neutrophils Absolute Auto 6.6 x10*3/uL (2.0-8.3); Neutrophils Percent Auto 77.2 % (45-73); Platelet Count 293 X10*3/uL (160-400); Red Blood Count 4.15 X10*6/uL (4.60-5.80); Red Cell Distribution Width 12.2 % (11.0-16.0); White Blood Count 8.6 X10*3/uL (4.8-10.8)
--- OUTSIDE RECORDS SUMMARY | 2024-08-11 22:47 | XMS_ITS | Encounter Summary ---
Author Organization [facility] Address [address] [place] [id number] Phone Care Team Providers Care Technical Publications Writer Name Role Phone Danita Barrios MD Primary Care Provider [phone] Encounter Details Date Type Department Care Team (Late st Contact Info) Description 11/14/2016 Conversion Encounter [facility] [place] [address] [place] [address] Social History Tobacco Use Types Packs/Day Years Used Date Smoking Tobacco: Never Assessed Sex and Gender Information Value Date Recorded Sex Assigned at Not on file Legal Sex Male 4:17 PM EDT Gender Identity Not on file Sexual Orientation Not on file documented as of this encounter Plan of Treatment Not on file documented as of this encounter Visit Diagnoses Not on filedocumented in this encounter Care Teams Technical Publications Writer Relationship Specialty Start Date End Date Danita Barrios MD [address] [place] [address] PCP - General 11/08/16 documented as of this encounter
--- OUTSIDE RECORDS SUMMARY | 2024-08-11 22:47 | XMS_ITS | Encounter Summary ---
Author Organization [employer] Address [address] [place] [address] Care Team Providers Care Telephoner Name Role Phone Unavailable Primary Care Provider Unavailabl e Reason for Visit * Reason Onset Date Comments Appointment 04/09/2022 Patient called i n stating that he had an appt today with Dr. Lawler at 8:30 but was unable to make it in due to car trouble. He wants to reschedule appt. Patient informed I would relay information to persons who schedule for oral surgery and they would reach out to schedule him again when they are able to do so. Encounter Details Date Type Department Care Team (Late st Contact Info) Description 04/09/2022 Telephone [facility] [address] [place] [address] Alexy Lawler, DMD [address] [place] [address] Appointment (Patient called in stating that he had an appt today with Dr. Lawler at 8:30 but was unable to make it in due to car trouble. He wants to reschedule appt. Patient informed I would relay information to persons who schedule for oral surgery and they would reach out to schedule him again when they are able to do so. ) Social History Tobacco Use Types Packs/Day Years Used Date Smoking Tobacco: Never Assessed Sex and Gender Information Value Date Recorded Sex Assigned at Male 03/05/2022 10:55 AM EST Legal Sex Male 10:31 AM EST Gender Identity Male 03/05/2022 10:55 AM EST Sexual Orientation Straight 03/05/2022 10 :55 AM EST COVID-19 Exposure Response Date Recorded In the last 10 days, have yo u been in contact with someone who was confirmed or suspected to have Coronavirus/COVID-19? No / Unsure 03/15/2022 1:09 PM EST documented as of this encounter Miscellaneous Notes * Telephone Encounter - Ernestine Geronimo - 04/09/2022 8:46 AM EST Patient called in stating that he had an appt today with Dr. Lawler at 8:30 but was unable to make it in due to car trouble. He wants to reschedule appt. Patient informed I would relay information to persons who schedule for oral surgery and they would reach out to schedule him again when they are able to do so. documented in this encounter Plan of Treatment Not on file documented as of this encounter Visit Diagnoses Not on filedocumented in this encounter
--- OUTSIDE RECORDS SUMMARY | 2024-08-11 22:47 | XMS_ITS | Clinical Summary ---
Author Organization [facility] Address [address] [place] [address] [address] [place] [address] Care Team Providers Care Low Pressure Firer Name Role Phone Unavailable Primary Care Provider Unavailabl e Allergies Active Allergy Reactions Criticality Noted Date Comments Penicillins 03/15/2022 Medications Sod Fluoride-Potass ium Nitrate 1.1-5 % pasteIndication s:Dental caries Apply 1 application to teeth in the morning and at bedtime. [place] teeth for 2 minutes, twice per day. Spit, do not rinse. Do not eat or drink anything following brushing. 96 g 3 2 Active Immunizations Immunization Administration Dates Next Due DTP 11/15/1992, 0,06/28/1988,1987,1987 Hep B, Adolescent or Pediatric 06/15/2002,1999,02/04/2000 Hib (PRP-T) 06/02/1989 MMR 02/04/2000,11/25/1988 OPV, Trivalent 11/15/1992, 9,1987,1987 TD (adult), 2 Lf tetanus tox oid, preservative free, adsorbed 02/04/2000 Tdap 05/13/2005 Social History Tobacco Use Types Packs/Day Years Used Date Smoking Tobacco: Never Smokeless Tobacco: Never Tobacco Cessation:Counseling Given: Not Answered Alcohol Use Standard Drinks/Week Comments Not Currently 0 (1 standard drink = 0.6 oz pur e alcohol) Sex and Gender Information Value Date Recorded Sex Assigned at Male 03/05/2022 10:55 AM EST Legal Sex Male 10:31 AM EST Gender Identity Male 03/05/2022 10:55 AM EST Sexual Orientation Straight 03/05/2022 10 :55 AM EST Last Filed Vital Signs Vital Sign Reading Time Taken Comments Blood Pressure 130/80 04/23/2022 11:15 AM EST Pulse 100 04/23/2022 11:15 AM EST Temperature - - Respiratory Rate - - Oxygen Saturation - - Inhaled Oxygen Concentration - - Weight - - Height - - Body Mass Index - - Plan of Treatment Health Maintenance Due Date Last Done Comments Dental Prophylaxis 1987 Depression Screening 1987 HIV Screening 1987 Lipid Panel 1987 SDOH Screening 1987 Alcohol/Substance Use Screening 1999 Family Planning (PISQ) 06/16/2002 Hepatitis C Screening 06/16/2005 DTaP/Tdap/Td Vaccines (7 - Td or Tdap) 05/13/2015 05/13/2005, 02/04/2000, 11/15/1992, Additional history exists Dental Oral Exam 09/14/2022 03/15/2022 Dental X-Ray: Bitewings 03/16/2023 03/15/2022 Tobacco Screening 04/23/2023 04/23/2022 COVID-19 Vaccine (2023- season) 2023 08/09/2020, 07/12/2020 Influenza Vaccine (#1) 2023 Dental X-Ray: Full Mouth 03/16/2025 03/15/2022 Zoster Vaccines (1 of 2) 06/16/2037 RSV Patients and Patients Aged 60 years or older (1 - 1-dose 75+ series) 06/16/2062 HIB Vaccines Completed 06/02/1989 IPV Vaccines Completed 11/15/1992, 05/31, 1987, Additional history exists Hepatitis B Vaccines Completed 06/15/2002, 03/10/2000, 02/04/2000 HPV Vaccines Aged Out No longer eligi ble based on patient's age to complete this topic Hepatitis A Vaccines Aged Out No long er eligible based on patient's age to complete this topic Meningococcal Vaccine Aged Out No yara bentley eligible based on patient's age to complete this topic Pneumococcal Vaccine: Pediatrics (0 to 5 Years) and At-Risk Patients (6 to 49) Years) Aged Out No longer eligible based on patient's age to complete this topic RSV under 20 months Aged Out No longe r eligible based on patient's age to complete this topic Rotavirus Vaccines Aged Out No longer eligible based on patient's age to complete this topic Procedures Procedure Name Priority Date/Time Associated Diagnosis Comments INTRAORAL - COMPLETE SERIES OF RADIOGRAPHIC IMAGES Routine 03/15/2022 1:00 PM EST Dental caries COMPREHENSIVE ORAL EVALUATION - NEW OR ESTABLISHED PATIENT Routine 03/15/2022 1:00 PM EST Dental caries from Last 3 Months or Most Recently Relevant to Health Maintenance Insurance [facility] C3 DENTAL-[facility] MEDICAID STAND ADULT
[2024-08-11 23:01] LABS: Alanine Aminotransferase 37 U/L (0-40); Albumin Level 4.4 g/dL (3.5-5.0); Alkaline Phosphatase 140 U/L (39-117); Anion Gap 13 (12-20); Aspartate Amino Transferase 36 U/L (5-37); Bilirubin Total 0.8 mg/dL (0.0-1.0); Blood Urea Nitrogen 15 mg/dL (9-16); Calcium 9.2 mg/dL (8.4-10.2); Carbon Dioxide 28 mmol/L (22-29); Chloride 101 mmol/L (96-108); Creatinine Clr Calc Pharmacy 168.2; Estimated Glomerular Filt Rate > 60; Glucose Random 126 mg/dL (60-115); Potassium 3.6 mmol/L (3.3-5.1); Sodium 138 mmol/L (135-145); Total Protein 7.7 g/dL (6.5-8.0)
[2024-08-11 23:06] LABS: B Type Natriuretic Peptide < 10 pg/mL (<100)
--- NOTE | 2024-08-11 23:08 | PC.NURSE ---
Report given to DEBORAH Gibson.
--- NOTE | 2024-08-11 23:11 | ED_ITS ---
HPI - Extremity Problem General Chief complaint: Extremity Problem Stated complaint: rt leg redness, pain,tight and warm to touch Time Seen by Provider: 08/11/24 22:57 Source: patient Mode of arrival: ambulatory Limitations: no limitations History of Present Illness ED Provider: HPI Narrative: Patient with no significant past medical history noticed redness of his right leg for last 4 days? Insect bite gradually as increase in redness and swelling spreading to ankle no fever no chills no open wound Related Data Previous Rx's ?Medication ?Instructions ?Recorded doxycycline monohydrate 100 mg 100 mg PO BID 10 days #20 caps 12/31/19 capsule doxycycline monohydrate 100 mg 100 mg PO BID leg cellulitis 10 12/31/19 capsule days #20 caps clindamycin HCl 150 mg capsule 150 mg PO TID 7 days #21 caps 10/01/20 clindamycin HCl 300 mg capsule 300 mg PO Q8H 7 days #21 caps 10/01/20 ketorolac 10 mg tablet 10 mg PO Q6H PRN pain 5 days #15 10/01/20 tabs clindamycin HCl 300 mg capsule 300 mg PO QID 10 days #40 caps 07/05/21 erythromycin 5 mg/gram (0.5 %) eye 0.5 inch ophthalmic (eye) QID 7 07/05/21 ointment days #3.5 grams naproxen 500 mg tablet 500 mg PO BID PRN pain 10 days #20 07/05/21 tabs clindamycin HCl 300 mg capsule 300 mg PO Q8H #30 caps 02/05/22 tramadol 50 mg tablet 50 mg PO Q6H PRN pain #20 tabs 02/05/22 cephalexin 500 mg capsule 500 mg PO QID 10 days #40 caps 08/11/24 doxycycline hyclate 100 mg tablet 100 mg PO BID #20 tabs 08/11/24 Allergies Allergy/AdvReac Type Severity Reaction Status Date / Time Penicillins Allergy Intermediate RASH Verified 08/11/24 22:32 penicillin V Allergy Unknown rash Verified 08/11/24 22:32 Review of Systems 2 Review of Systems: Yes all other systems are reviewed and are negative PMFSH Past Medical History Medical History Hernia Depression Anxiety Migraine Opiate addiction Social History Social History Smoked in Last 30 Days: No Use of substances other than those prescribed or required for medical reasons: No Substance Use Type: Marijuana Advance Directives: No Advance Directives Information Provided: No Physical Exam 2 Vital Signs: Vital Signs: Last Vital Signs Temp 98.3 F 08/11/24 22:25 Pulse 122 H 08/11/24 22:25 Resp 20 08/11/24 22:25 BP 128/89 08/11/24 22:25 Pulse Ox 97 08/11/24 22:25 O2 Del Method Room Air 08/11/24 22:25 BMI result Body Mass Index 32.5 Appearance: Alert. Oriented X3. No acute distress. ENT: Pharynx normal. Oral Mucosa moist Neck: Normal inspection. Neck supple. CVS: Normal heart rate and rhythm. Pulses normal. Respiratory: No respiratory distress. Equal air entry bilateral, Abdomen: Soft and nontender. Bowel sounds are present, Skin: Skin warm and dry. Normal skin color. Normal skin turgor. Extremities: Erythematous edema right leg. No calf tenderness no open wound Neuro: Oriented X 3. No motor deficit. No sensory deficit.No cerebellar signs , cranial nerves II-XII intact Medications Administered Discontinued Medications Generic Name Dose Route Start Last Admin Trade Name Freq PRN Reason Stop Dose Admin Cephalexin HCl 1,000 mg 08/11/24 23:12 08/11/24 23:36 Cephalexin 500 Mg Capsule PO 08/11/24 23:13 1,000 mg ONCE ONE Administration Doxycycline Monohydrate 100 mg 08/11/24 23:12 08/11/24 23:36 Doxycycline Monohydrate 100 Mg Capsule PO 08/11/24 23:13 100 mg ONCE ONE Administration Medical Decision Making Medical Decision Making [facility] Narrative: Patient with uncomplicated cellulitis of the right leg no signs of systemic infection will prescribe him doxycycline and cephalexin Lab Data 08/11/24 22:37 08/11/24 22:37 Labs: Lab Results 08/11/24 Range/Units 22:37 WBC 8.6 (4.8-10.8) X10*3/uL RBC 4.15 L (4.60-5.80) X10*6/uL Hgb 12.1 L (14.0-18.0) g/dl Hct 35.4 L (42.0-52.0) % MCV 85.3 (80.0-98.0) fL MCH 29.2 (27.0-33.0) pg MCHC 34.2 (31.0-36.0) g/dl RDW 12.2 (11.0-16.0) % Plt Count 293 (160-400) X10*3/uL MPV 9.3 L (9.4-12.4) fL Immature Gran % (Auto) 0.4 (0.0-0.4) % Neut % (Auto) 77.2 H (45-73) % Lymph % (Auto) 14.7 L (20-40) % [place] % (Auto) 6.7 (2-11) % Eos % (Auto) 0.6 (0-4) % Baso % (Auto) 0.4 (0-2) % Lymph # (Auto) 1.3 (1.2-4.9) X10*3/uL [place] # (Auto) 0.6 (0.1-1.2) X10*3/uL Eos # (Auto) 0.1 (0.0-0.4) X10*3/uL Baso # (Auto) 0.0 (0.0-0.2) X10*3/uL Abs Immat Gran (auto) 0.03 (0.00-0.03) X10*3/uL Absolute Neuts (auto) 6.6 (2.0-8.3) x10*3/uL Absolute Nucleated RBC 0.000 (0.0-0.012) X10*3/uL Nucleated RBC % (auto) 0.0 (0.0-0.2) /100WBC Sodium 138 (135-145) mmol/L Potassium 3.6 (3.3-5.1) mmol/L Chloride 101 (96-108) mmol/L Carbon Dioxide 28 (22-29) mmol/L Anion Gap 13 (12-20) BUN 15 (9-16) mg/dL Creatinine 0.70 (0.5-1.4) mg/dL Estim Creat Clear Calc 168.2 Estimated GFR > 60 Random Glucose 126 H (60-115) mg/dL Calcium 9.2 D (8.4-10.2) mg/dL Total Bilirubin 0.8 (0.0-1.0) mg/dL AST 36 (5-37) U/L ALT 37 (0-40) U/L Alkaline Phosphatase 140 H (39-117) U/L B-Natriuretic Peptide < 10 (<100) pg/mL Total Protein 7.7 (6.5-8.0) g/dL Albumin 4.4 (3.5-5.0) g/dL Discharge Plan Discharge Clinical Impression: Cellulitis Patient Disposition: Home, Self-Care Instructions: Cellulitis (ED) Additional Instructions: Keep your right leg elevated Take antibiotic as prescribed Report to the ER if worsening of the redness or swelling or fever for further management Prescriptions: New cephalexin 500 mg capsule 500 mg PO QID 10 Days Qty: 40 0RF doxycycline hyclate 100 mg tablet 100 mg PO BID Qty: 20 0RF No Action doxycycline monohydrate 100 mg capsule 100 mg PO BID 10 Days Qty: 20 0RF doxycycline monohydrate 100 mg capsule 100 mg PO BID 10 Days Qty: 20 0RF clindamycin HCl 300 mg capsule 300 mg PO Q8H 7 Days Qty: 21 0RF Rx Instructions: take 450 mg 3 times a day for 7 days clindamycin HCl 150 mg capsule 150 mg PO TID 7 Days Qty: 21 0RF Rx Instructions: take 450 mg every 8 hours for 7 days ketorolac 10 mg tablet 10 mg PO Q6H PRN (Reason: pain) 5 Days Qty: 15 0RF Rx Instructions: 60 mg IM dose given in the emergency department on 10/01/2020 at 12:39 a.m. clindamycin HCl 300 mg capsule 300 mg PO Q8H Qty: 30 0RF tramadol 50 mg tablet 50 mg PO Q6H PRN (Reason: pain) Qty: 20 0RF clindamycin HCl 300 mg capsule 300 mg PO QID 10 Days Qty: 40 0RF erythromycin 5 mg/gram (0.5 %) ointment 0.5 inch ophthalmic (eye) QID 7 Days Qty: 3.5 0RF naproxen 500 mg tablet 500 mg PO BID PRN (Reason: pain) 10 Days Qty: 20 0RF Print Language: Kiswahili
[2024-08-11] MEDS: Doxycycline Monohydrate 100 MG CAPSULE PO (23:36)
[2024-08-11] MEDS: cephALEXin 500 MG CAPSULE 1000 MG PO (23:36)
[2024-08-11 23:55] VITALS: BP 128/89; PULSE 122; RESP 20; TEMP 36.8; O2SAT 97
== END 2024-08-11 23:56 | disposition home or self-care (01) ==
PROVIDERS: Emergency Provider Internal Medicine; PCP Internal Medicine
DX: L03.115 Cellulitis of right lower limb (principal); M79.604 Pain in right leg; Z79.899 Other long term (current) drug therapy
CPT/HCPCS: 36415; 80053; 83880; 85025; 99283